=== PATIENT | female | born 1985 | race Caucasian/White ===

== ENCOUNTER 2021-01-26 16:52 | Inpatient (IN) | payer OTHER ==
[~2021-01-26 16:52] MED LIST: HCTZ25 MG PO; IBUPROFEN800 MG PO; PERCOCET 5-3251 EACH PO; SYNTHROID50 MCG PO
[2021-01-27 21:04] LABS: BILIRUBIN 1+ mg/dL (NEGATIVE); BLOOD NEGATIVE Ery/uL (NEGATIVE); COLOR YELLOW (YELLOW); GLUCOSE (U) NORMAL (NORMAL); LEUKOCYTES NEGATIVE Leu/uL (NEGATIVE); NITRITE NEGATIVE (NEGATIVE); PROTEIN 2+ mg/dL (NEGATIVE); SPECIFIC GRAVITY >=1.030 (1.001-1.030); UROBILINOGEN 0.2 mg/dL (0.2-1.0)
[2021-01-27 21:05] LABS: HCT 29.9 % (37.0-47.0); MCH 24.3 pg (25.0-31.0); MCHC 30.1 g/dL (32.0-36.0); MCV 80.8 fL (78.0-100.0); MPV 10.7 fL (6.0-9.5); RBC 3.7 M/uL (4.20-5.40); RDW 15.9 % (11.5-14.0); WBC 8.5 K/uL (4.0-10.5)
[2021-01-27 21:08] LABS: CLARITY HAZY (CLEAR)
[2021-01-27 21:13] LABS: BACTERIA 1+; CALCIUM OXALATE CRYSTALS MODERATE; MUCOUS TRACE; URINARY RBC RARE; URINARY WBC RARE
[2021-01-27 22:13] LABS: ALBUMIN 2.6 g/dL (3.4-5.0); BILIRUBIN - TOTAL 0.4 mg/dL (0.2-1.0); BUN/CREAT RATIO (CALC) 14.6 RATIO; CREATININE 0.82 mg/dL (0.51-0.95); GLOBULIN (CALCULATION) 4.1 g/dL; POTASSIUM 3.8 mmol/L (3.5-5.1); TOTAL PROTEIN 6.7 g/dL (6.4-8.2)
[2021-01-28 11:28] LABS: HCT 27.8 % (37.0-47.0); HGB 8.3 g/dl (12.5-16.0); MCH 24.6 pg (25.0-31.0); MCHC 29.9 g/dL (32.0-36.0); MCV 82.5 fL (78.0-100.0); MPV 10.6 fL (6.0-9.5); RBC 3.37 M/uL (4.20-5.40); RDW 15.9 % (11.5-14.0)
[2021-01-28 11:38] LABS: WBC 15.4 K/uL (4.0-10.5)
[2021-01-28 11:56] LABS: INR 0.98 (0.9-1.2); PROTHROMBIN TIME 12.4 SECONDS (11.8-13.4); PTT 25.2 SECONDS (24.4-34.7)
[2021-01-28 16:12] LABS: HCT 26.7 % (37.0-47.0)
[2021-01-29 06:21] LABS: HCT 20.7 % (37.0-47.0); MCH 24.8 pg (25.0-31.0); MCV 82.8 fL (78.0-100.0); MPV 10.3 fL (6.0-9.5); RBC 2.5 M/uL (4.20-5.40); RDW 16.1 % (11.5-14.0); WBC 11.4 K/uL (4.0-10.5)
[2021-01-29 06:24] LABS: HGB 6.2 g/dl (12.5-16.0)
[2021-01-29 20:55] LABS: HCT 22.8 % (37.0-47.0); MCH 25.8 pg (25.0-31.0); MCHC 30.7 g/dL (32.0-36.0); MCV 84.1 fL (78.0-100.0); RBC 2.71 M/uL (4.20-5.40); RDW 15.6 % (11.5-14.0); WBC 10.5 K/uL (4.0-10.5)
[2021-01-30 09:06] LABS: HCT 22.2 % (37.0-47.0); HGB 6.7 g/dl (12.5-16.0); MCH 25.9 pg (25.0-31.0); MCHC 30.2 g/dL (32.0-36.0); MCV 85.7 fL (78.0-100.0); MPV 10.4 fL (6.0-9.5); RBC 2.59 M/uL (4.20-5.40); RDW 15.7 % (11.5-14.0); WBC 11.1 K/uL (4.0-10.5)
[2021-01-31 06:21] LABS: HCT 26.3 % (37.0-47.0); HGB 8.1 g/dl (12.5-16.0); MCH 26.1 pg (25.0-31.0); MCHC 30.8 g/dL (32.0-36.0); MCV 84.8 fL (78.0-100.0); MPV 10.4 fL (6.0-9.5); RBC 3.1 M/uL (4.20-5.40); RDW 15.6 % (11.5-14.0); WBC 9.7 K/uL (4.0-10.5)
[2021-01-31] MEDS ORDERED: COLACE100 MG PO (10:11)
[2021-01-31] MEDS ORDERED: FEOSOL325 MG PO (10:11)
[2021-01-31] MEDS ORDERED: IBUPROFEN800 MG PO (10:11)
[2021-01-31] MEDS ORDERED: TRANDATE100 MG PO (10:11)
== END 2021-01-31 11:25 | disposition home or self-care (01) | DRG 806 ==
LOC: FOB 16:52
PROVIDERS: Specialist; ADMIT Obstetrics & Gynecology
PROC: 10E0XZZ Delivery of Products of Conception, External Approach (ICD-10-PCS; principal; 2021-01-28)
PROC: 10D17Z9 Manual Extraction of Products of Conception, Retained, Via Natural or Artificial Opening (ICD-10-PCS; 2021-01-28)
PROC: 10E0XZZ Delivery of Products of Conception, External Approach (ICD-10-PCS; 2021-01-28)
PROC: 0HQ9XZZ Repair Perineum Skin, External Approach (ICD-10-PCS; 2021-01-28)
PROC: 30233N1 Transfusion of Nonautologous Red Blood Cells into Peripheral Vein, Percutaneous Approach (ICD-10-PCS; 2021-01-29)
PROC: 30233N1 Transfusion of Nonautologous Red Blood Cells into Peripheral Vein, Percutaneous Approach (ICD-10-PCS; 2021-01-30)
DX: O24.424 Gestational diabetes mellitus in childbirth, insulin controlled (principal); O10.92 Unspecified pre-existing hypertension complicating childbirth; Z37.0 Single live birth; D62 Acute posthemorrhagic anemia; O72.1 Other immediate postpartum hemorrhage; Z3A.38 38 weeks gestation of pregnancy; O99.02 Anemia complicating childbirth; O99.214 Obesity complicating childbirth; Z20.822 Contact with and (suspected) exposure to COVID-19; O69.81X0 Labor and delivery complicated by cord around neck, without compression, not applicable or unspecified; O99.284 Endocrine, nutritional and metabolic diseases complicating childbirth; E03.9 Hypothyroidism, unspecified; E66.01 Morbid (severe) obesity due to excess calories; Z91.14 Patient's other noncompliance with medication regimen
CPT/HCPCS: 36415; 36430; 80053; 81001; 82009; 82962; 84112; 85014; 85018; 85384; 85610; 85730; 86850; 86900; 86901; 86922; J1200; J2210; J2405; J2916; J7050; J7120; P9016; U0002